=== PATIENT | male | born 2000 | race African-American/Black ===

== ENCOUNTER 2021-12-04 16:19 | Outpatient (CLI) | payer BC, OTHER, SELFPAY ==
--- NOTE | ~2021-12-04 | MR_ITS ---
EXAMINATION: MR knee LT wo con DATE: 12/04/2021 17:21 INDICATION: Left knee pain and swelling. Football injury 2 weeks ago. TECHNIQUE: Magnetic resonance imaging (MRI) of the left knee was performed without intravenous contra st. COMPARISON: None. FINDINGS: Medial compartment: Medial meniscus is normal. Medial compartment cartilage is normal. Lateral compartment: Lateral meniscus is normal. Lateral compartment cartilage is normal. Patellofemoral compartment: Patellar cartilage is normal. There is deep cartilage fissuring of lateral trochlea with underlying c ortical irregularity and mild subchondral edema-like marrow signal intensity. Ligaments and tendons: Anterior cruciate ligament demonstrates increased signal intensity. Anterior cruciate ligament is not less steep than Blum[place]at line. Posterior cruciate ligament demonstrates thickening and increased s ignal intensity. Medial collateral ligament demonstrates thickening and increased signal intensity an d surrounding edema. Lateral collateral ligament complex is normal. There is mild patellar tendinopat hy. Fluid: There is a moderate-sized knee joint effusion. There is widespread subcutaneous edema about the knee. Osseous/other: There are contusions of the posterior aspects of the medial tibial condyles and notch of the lateral femoral condyle. IMPRESSION: 1. Increased signal in anterior cruciate ligament, likely a partial tear. 2. Partial tear of posterior cruciate ligament. 3. Moderate chondrosis of lateral trochlea. 4. Moderate-sized knee joint effusion. Reviewed, dictated and finalized at location A.
== END 2021-12-04 16:20 | disposition home or self-care (01) ==
PROVIDERS: Visit Provider Orthopaedic Surgery
DX: S83.522A Sprain of posterior cruciate ligament of left knee, initial encounter (principal); M25.462 Effusion, left knee
CPT/HCPCS: 73721